=== PATIENT | male | born 1955 | race Caucasian/White ===

== ENCOUNTER 2021-03-13 10:29 | Outpatient (CLI) | payer OTHER | END 2021-03-13 10:39 | disposition home or self-care (01) | LOC: SONOGRAMA 10:29 | PROVIDERS: ATTEND Internal Medicine Pulmonary Disease | DX: N20.0 Calculus of kidney (principal); R10.84 Generalized abdominal pain; N28.89 Other specified disorders of kidney and ureter ==

== ENCOUNTER 2022-12-24 10:55 | Inpatient (IN) | payer OTHER ==
[~2022-12-24] VITALS: Ht 170.2 cm; Wt 89.8 kg
[2022-12-24 11:49] LABS: PH,URINE 5.5 (5.0-8.0); URINE APPEARANCE Clear; URINE BILIRRUBIN Negative (NEGATIVE); URINE BLOOD Negative; URINE COLOR Yellow; URINE GLUCOSE Negative (NEGATIVE); URINE LEUKOCYTE Negative; URINE NITRATE Negative; URINE PROTEIN Negative (NEGATIVE); URINE UROBILINOGEN 0.2 E.U./dl
[2022-12-24 11:54] LABS: URINE BACTERIA 6.2 uL (0.0-1933)
[2022-12-24 12:05] LABS: URINE RBC 0.1 uL (0.0-20.8)
[2022-12-24 12:12] LABS: ALBUMIN 3.5 gm/dL (3.4-5.0); BILIRUBIN TOTAL 0.29 mg/dL (0.3-1.2); CALCIUM 9.2 mg/dL (8.5-10.1); CREATININE SERUM 2.53 mg/dL (0.70-1.30); FERRITIN 69.4 NG/ML (26-388); GFR 25.53; POTASSIUM 5.65 mEq/L (3.5-5.1); TOTAL PROTEIN 7.5 gm/dL (6.4-8.2)
[2022-12-24 12:30] LABS: MEAN CELL VOLUME 91.5 fL (80.0-100.00); MEAN CORPUSCULAR HGB CONC 33.9 g/dl (32.0-36.0); PLATELET COUNT 243 K/uL (150-450); RED BLOOD COUNT 2.29 M/uL (4.00-6.00); RED CELL DISTRIBUTION WIDTH 14.2 % (11.5-14.5)
[2022-12-24 12:53] LABS: HEMATOCRIT 20.9 % (39.0-48.0); HEMOGLOBIN 7.1 g/dL (13-16.00)
[2022-12-24 13:25] LABS: PARTIAL THROMBOPLASTIN TIME 26.2 SECONDS (22.0-34.0)
[2022-12-24 13:31] LABS: INR 1.07; PROTHROMBIN TIME 11.2 SECONDS (9.0-11.5)
[2022-12-24] MEDS ORDERED: CENTRUM SILVER1 EAC2 (17:01)
[2022-12-24] MEDS ORDERED: LOSARTAN POTAS100 MG (17:01)
[2022-12-24] MEDS ORDERED: LEVOTHYROXINE88 MCG (17:01)
[2022-12-24] MEDS ORDERED: NORVASC2.5 MG (17:01)
[2022-12-24] MEDS ORDERED: VITAMIN B-150 MG (17:02)
[2022-12-24] MEDS ORDERED: FOLIC ACID1 MG (17:02)
[2022-12-25 19:17] LABS: ob POSITIVE (NEGATIVE)
[2022-12-26 03:40] LABS: HEMATOCRIT 25.6 % (39.0-48.0); MEAN CELL VOLUME 89.7 fL (80.0-100.00); MEAN CORPUSCULAR HGB CONC 34.5 g/dl (32.0-36.0); RED BLOOD COUNT 2.86 M/uL (4.00-6.00); RED CELL DISTRIBUTION WIDTH 15.1 % (11.5-14.5)
[2022-12-26 03:43] LABS: HEMOGLOBIN 8.8 g/dL (13-16.00); MEAN CORPUSCULAR HEMOGLOBIN 30.7 pg (27.00-32.0)
[2022-12-26 03:44] LABS: PLATELET COUNT 257 K/uL (150-450)
[2022-12-26] MEDS ORDERED: NORVASC2.5 M1 PO (17:20)
[2022-12-26] MEDS ORDERED: LOSARTAN POTAS100 MG PO (17:20)
[2022-12-26] MEDS ORDERED: FOLIC ACID1 MG PO (17:21)
[2022-12-26] MEDS ORDERED: LEVOTHYROXINE88 MCG PO (17:21)
[2022-12-26] MEDS ORDERED: ZYLOPRIM100 M1 PO (17:22)
[2022-12-26] MEDS ORDERED: CENTRUM SILVER1 EAC2 PO (17:22)
[2022-12-26] MEDS ORDERED: PEPCID AC20 MG PO (17:25)
[2022-12-27 14:07] LABS: IMMUNOGLOBULIN A 244 mg/dL (61-437); IMMUNOGLOBULIN G 1691 mg/dL (603-1613); IMMUNOGLOBULIN M 147 mg/dL (20-172)
[2022-12-27 16:11] LABS: kappa lambda r 1.37 (0.26-1.65); lambda light 93.5 mg/L (5.7-26.3)
== END 2022-12-26 17:37 | disposition home or self-care (01) | DRG 684 ==
LOC: MEDI 10:55
PROVIDERS: ADMIT Internal Medicine Hematology & Oncology; ATTEND Internal Medicine Hematology & Oncology
PROC: 30233N1 Transfusion of Nonautologous Red Blood Cells into Peripheral Vein, Percutaneous Approach (ICD-10-PCS; principal; 2022-12-25)
DX: N18.31 Chronic kidney disease, stage 3a (principal); D63.1 Anemia in chronic kidney disease; D50.8 Other iron deficiency anemias
CPT/HCPCS: 240

== ENCOUNTER 2023-04-10 07:46 | Outpatient (CLI) | payer OTHER ==
[~2023-04-10 07:46] MED LIST: CENTRUM SILVER1 EAC2; CENTRUM SILVER1 EAC2 PO; FOLIC ACID1 MG; FOLIC ACID1 MG PO; LEVOTHYROXINE88 MCG; LEVOTHYROXINE88 MCG PO; LOSARTAN POTAS100 MG; LOSARTAN POTAS100 MG PO; NORVASC2.5 M1 PO; NORVASC2.5 MG; PEPCID AC20 MG PO; VITAMIN B-150 MG; ZYLOPRIM100 M1 PO
== END 2023-04-10 07:49 | disposition home or self-care (01) ==
LOC: SONOGRAMA 07:46
DX: R10.84 Generalized abdominal pain (principal)

== ENCOUNTER 2023-05-29 07:43 | Outpatient (CLI) | payer OTHER | END 2023-05-29 07:48 | disposition home or self-care (01) | LOC: RAD 07:43 | PROVIDERS: ATTEND Physical Medicine & Rehabilitation | DX: M48.062 Spinal stenosis, lumbar region with neurogenic claudication (principal); M47.892 Other spondylosis, cervical region ==

== ENCOUNTER 2023-12-03 08:57 | Outpatient (CLI) | payer OTHER | END 2023-12-03 09:56 | disposition home or self-care (01) | LOC: MRI 08:57 | PROVIDERS: ATTEND Physical Medicine & Rehabilitation | DX: M47.896 Other spondylosis, lumbar region (principal); M48.062 Spinal stenosis, lumbar region with neurogenic claudication; M46.40 Discitis, unspecified, site unspecified; G99.8 Other specified disorders of nervous system in diseases classified elsewhere | CPT/HCPCS: 72141; 72148 ==

== ENCOUNTER 2024-06-04 07:49 | Outpatient (CLI) | payer OTHER | END 2024-06-04 07:53 | disposition home or self-care (01) | LOC: SONOGRAMA 07:49 | DX: R10.84 Generalized abdominal pain (principal) ==

== ENCOUNTER 2024-06-16 07:18 | Outpatient (CLI) | payer OTHER | END 2024-06-16 07:19 | disposition home or self-care (01) | LOC: NUCLEAR 07:18 | PROVIDERS: ATTEND Internal Medicine Hematology & Oncology | DX: C61 Malignant neoplasm of prostate (principal) | CPT/HCPCS: 78815; A9552 ==